=== PATIENT | female | born 1925 | race Caucasian/White ===

== ENCOUNTER 2016-06-07 13:20 | Emergency (ER) | payer MEDICARE, MEDICAID ==
[~2016-06-07] VITALS: Ht 167.6 cm; Wt 63.5 kg
[~2016-06-07 13:20] MED LIST: ANTI1CAP5 PO; Acetaminophen PO; Cephalexin Monohydrate PO; DIVA125C PO; LORA0.5T48 PO; MAG30ORA PO; Metoprolol Tartrate PO; NA PHOS DI BA RC; NA PHOS M B RC; Polyethylene Glycol 3350 PO; RISP0.253 PO; TEMA7.5C PO
--- NOTE | 2016-06-07 13:22 | NUR ---
DR FELDMAN AT THE BEDSIDE FOR EVAL AND EXAM.
[2016-06-07] MEDS: OLANZAPINE 10 MG VIAL IM ONE (13:31)
[2016-06-07] MEDS ORDERED: RISP0.5T2 PO (13:35)
[2016-06-07] MEDS ORDERED: OLANZAPINE 10 MG VIAL IM ONE (13:37)
--- NOTE | 2016-06-07 13:48 | NUR ---
PT IS CALM AND COOPERATIVE AT THIS TIME, REMOVED RESTRAINES.
[2016-06-07 14:13] LABS: BASOPHILS # (AUTO) 0.1 K/uL (0.0-0.2); BASOPHILS % (AUTO) 0.8 % (0.0-2.0); EOSINOPHILS # (AUTO) 0.1 K/uL (0.0-0.7); HEMATOCRIT 32.8 % (37.0-47.0); HEMOGLOBIN 10.8 g/dL (12.0-16.0); LYMPHOCYTES # (AUTO) 1.9 K/uL (0.8-4.8); MEAN CORPUSCULAR HGB CONC 33 g/dL (32.0-37.0); MEAN CORPUSCULAR VOLUME 94.1 fL (81.0-99.0); MONOCYTES # (AUTO) 0.8 K/uL (0.1-1.30); MONOCYTES % (AUTO) 10.8 % (0.0-11.0); NEUTROPHILS # (AUTO) 4.2 K/uL (1.8-8.9); NEUTROPHILS % (AUTO) 59.4 % (38.5-71.5); PLATELET COUNT (AUTO) 206 K/uL (150-450); RED BLOOD CELL COUNT(AUTO) 3.49 MIL/uL (4.20-5.40); RED CELL DISTRIBUTION WIDTH 13.2 % (11.5-14.5); WHITE BLOOD COUNT (AUTO) 7.1 K/uL (4.0-11.2)
[2016-06-07 14:19] LABS: ALANINE AMINOTRANSFERASE 19 U/L (14-59); ALBUMIN 2.8 g/dL (3.4-5.0); ALKALINE PHOSPHATASE 69 U/L (50-136); ASPARTATE AMINOTRANSFERASE 13 U/L (15-37); BILIRUBIN,DIRECT 0.1 mg/dL (0.0-0.2); BILIRUBIN,TOTAL 0.3 mg/dL (0.2-1.0); CALCIUM 9.6 mg/dL (8.5-10.1); CARBON DIOXIDE 28 mmol/L (21-32); CHLORIDE 101 mmol/L (98-107); CREATININE 0.8 mg/dL (0.6-1.3); GLUCOSE 108 mg/dL (74-106); POTASSIUM 4.5 mmol/L (3.5-5.1); SODIUM SERUM 135 mmol/L (136-145); TOTAL PROTEIN, SERUM 5.9 g/dL (6.4-8.2); UREA NITROGEN, BLOOD 21 mg/dL (7-18)
[2016-06-07 14:24] LABS: ETHANOL < 3 MG/DL (0-0)
[2016-06-07 14:28] LABS: ACETAMINOPHEN < 2.0 ug/mL (10-30)
--- NOTE | 2016-06-07 14:55 | NUR ---
PT BECOMES RESTLESS AGAIN AND TRY TO GET OUT OF BED MULTIPLE TIMES. INCREASED OBSERVATION. AWARE. AWAITING 1 TO 1 COMPAINION ETA IS 35 MIN PER NURDSING CLINICAL AUDIOLOGIST.
[2016-06-07] MEDS: LORAZEPAM 2 MG/1 ML VIAL IM ONE (14:59)
[2016-06-07] MEDS ORDERED: LORAZEPAM 2 MG/1 ML VIAL ONE (15:04)
--- NOTE | 2016-06-07 15:25 | NUR ---
PER LUISA KIMBROUGH(PET EVALUATER), PT WILL BE GOING BACK TO FACILITY([facility]). FACILITY REP (ALEXA) WAS NOTIFIED OF PT GOING BACK.
--- NOTE | 2016-06-07 16:34 | NUR ---
Patient is resting comfortably in bed with eyes closed, NAD NOTED.
[2016-06-07 17:58] VITALS: BP 136/59
--- NOTE | 2016-06-07 17:59 | NUR ---
report given to EMT's, pt left er in stable condition and all belonging sent w/ EMT's, as well as discharge paperwork.
== END 2016-06-07 18:01 | disposition home or self-care (01) ==
LOC: ER 13:20
DX: F29 Unspecified psychosis not due to a substance or known physiological condition (principal); R45.1 Restlessness and agitation; I10 Essential (primary) hypertension; F03.90 Unspecified dementia, unspecified severity, without behavioral disturbance, psychotic disturbance, mood disturbance, and anxiety; I50.9 Heart failure, unspecified; D64.9 Anemia, unspecified
CPT/HCPCS: 80048; 80076; 85025; 96372 ×2; 99284; A4663; G0480; G0481; G0482; J2060; J2358; 36415; G6040-TC